=== PATIENT | female | born 1990 | race African-American/Black ===

== ENCOUNTER 2025-06-28 07:01 | Day surgery (SDC) | payer BC ==
[2025-06-28] MEDS ORDERED: Propofol 200 MG/20 ML SDV ONE ×2 (07:18→08:58)
[2025-06-28] MEDS ORDERED: Midazolam 1 MG/ML 2 ML SDV ONE (07:19)
[2025-06-28] MEDS ORDERED: fentaNYL 50 MCG/ML SDV ONE (07:19)
[2025-06-28] MEDS: Lactated Ringers 1,000 ML IV SCH (08:04)
== END 2025-06-28 11:10 | disposition home or self-care (01) ==
LOC: JP.SDS 07:01
PROVIDERS: ATTEND Surgery
DX: K20.90 Esophagitis, unspecified without bleeding (principal); E66.01 Morbid (severe) obesity due to excess calories; Z88.5 Allergy status to narcotic agent
CPT/HCPCS: 00731-QZ; 81025; 87081; 88305; J2250; J2704; J3010; J7120